=== PATIENT | male | born 1975 | race Caucasian/White ===

== ENCOUNTER → 2017-02-27 | Outpatient (CLI) | payer BC, OTHER ==
[~2017-02-27] MED LIST: ADDERALL XR 2525 MG PO; ALLOPURINOL 30300 M2 PO; HCG; NORVASC5 MG PO; OMEPRAZOLE 20 M20 M1 PO; TESTONE CI200 MG/1 M; VALSARTAN-HCTZ1 EAC3 PO
[2017-02-27 08:25] VITALS: BP 154/102
[2017-02-27 08:55] VITALS: BP 149/92
[2017-02-27 09:04] LABS: HEMATOCRIT 50.9 % (42.0-52.0); HEMOGLOBIN 17.8 gm/dL (14.0-18.0)
[2017-02-27 09:15] VITALS: BP 149/92
== END ==
LOC: OPONC 06:56
DX: R71.8 Other abnormality of red blood cells (principal)
CPT/HCPCS: 95100